=== PATIENT | female | born 1950 | race Caucasian/White ===

== ENCOUNTER 2018-11-05 05:44 | Day surgery (SDC) | payer MEDICARE, OTHER ==
[~2018-11-05] VITALS: Ht 154.9 cm; Wt 75.2 kg
[~2018-11-05 05:44] MED LIST: ATOR20TA38 PO; GABA300S PO; NAPR-683 PO; NAPR-688 PO; OMEP40CA6 PO; TRAM200T17 PO; [UNRECOGNIZED DRUG - CODE] IV
[2018-11-05 06:49] VITALS: Ht 154.9 cm; Wt 75.2 kg
[2018-11-05 06:57] VITALS: BP 131/63; PULSE 69; RESP 12
--- NOTE | 2018-11-05 07:54 | PREAC ---
Date/Time of Note Date/Time of Note DATE: 11/05/18 TIME: 07:53 Anesthesia Eval and Record Evaluation Time Pre-Procedure Interview DATE: 11/05/18 TIME: 07:53 Age 68 Sex female NPO: 8 hrs Preoperative diagnosis ESOPHAGEAL REFLUX Planned procedure EGD Past Medical History Past Medical History: Includes Cardio: Dyslipidemia Musculoskeletal: Rheumatoid arthritis GI: Obesity Surgery & Anesthesia Issues No known issue Meds Anticoagulation: No Beta Leila within 24 hr: No Reason Beta Leila not given: Pt. not on B-Leila Reported Medications Omeprazole* (Omeprazole*) 40 Mg Capsule.dr, 40 MG PO DAILY, #30 CAP 11/05/18 Atorvastatin Calcium* (Atorvastatin Calcium*) 20 Mg Tablet, 20 MG PO QHS, #30 TAB 11/05/18 Rituximab (Rituxan) 10 Mg/Ml Soln, 500 MG IV TWICE PER WEEK 11/05/18 Naproxen* (Naproxen*) 500 Mg Tablet, 500 MG PO BID, TAB 11/05/18 Discontinued Reported Medications Naproxen* (Naproxen*) 250 Mg Tablet, 250 MG PO PRN for PAIN 08/14/13 Tramadol Hcl* (Ultram* ER) 200 Mg Tab.sr.24h, 200 MG PO PRN for PAIN 08/14/13 Gabapentin (GABAPENTIN) 300 Mg/6 Ml Solution, 300 MG PO DAILY 08/14/13 Meds reviewed: Yes Allergies Coded Allergies: methotrexate (Verified Allergy, Severe, THROAT SWELLING, 11/05/18) aspirin (Verified Adverse Reaction, Intermediate, NAUSEA, 11/05/18) Allergies Reviewed: Yes Labs/Studies Labs Reviewed: Reviewed by anesthesiologist test: N/A Pre-procedure Exam Last vitals Vital Signs Date Temp Pulse Resp B/P (MAP) Pulse Ox O2 O2 Flow FiO2 Time Delivery Rate 11/05/18 97.0 69 12 131/63 98 Room Air 06:57 (85) Airway: Adequate mouth opening, Adequate thyromental dist Mallampati: Mallampati II Teeth: Normal Lung: Normal Heart: Normal ASA Physical Status ASA physical status: 2 Emergency: None Planned Anesthetic General/MAC: MAC Planned Pain Management Parenteral pain med Pre-operative Attestations Prior to commencing anesthesia and surgery, the patient was re-evaluated, there was verification of: *The patient's identity *The results of appropriate recent lab work and preoperative vital signs *The above evaluation not changing prior to induction *Anesthetic plan, risk benefits, alternative and complications discussed with patient/family; questions answered; patient/family understands, accepts and wishes to proceed. José Herman M.D. Nov 05, 2018 07:54
[2018-11-05] MEDS ORDERED: PROPOFOL 200 MG INJ ONE (07:55)
[2018-11-05] MEDS ORDERED: FENTAnyl 50 MCG/ML VIAL ONE (07:55)
[2018-11-05] MEDS ORDERED: LIDOCAINE 100 MG SYRINGE ONE (07:55)
[2018-11-05] MEDS ORDERED: PROPOFOL 40 ML ONE (07:55)
--- NOTE | 2018-11-05 08:14 | PAC ---
Date/Time of Note Date/Time of Note DATE: 11/05/18 TIME: 08:14 Post-Anesthesia Notes Post-Anesthesia Note Last documented vital signs Vital Signs Date Temp Pulse Resp B/P (MAP) Pulse Ox O2 O2 Flow FiO2 Time Delivery Rate 11/05/18 97.0 69 12 131/63 98 Room Air 06:57 (85) Activity: WNL Respiratory function: WNL Cardiovascular function: WNL Mental status: Baseline Pain reasonably controlled: Yes Hydration appropriate: Yes Nausea/Vomiting absent: Yes José Herman M.D. Nov 05, 2018 08:14
[2018-11-05 08:30] VITALS: BP 138/64; PULSE 70; RESP 16
--- NOTE | 2018-11-05 10:32 | CONS ---
DATE OF ADMISSION: 11/05/2018 DATE OF CONSULTATION: PATIENT NAME: DEMARCUS MANRIQUE TYPE OF CONSULTATION: Preoperative gastroenterology. HISTORY OF PRESENT ILLNESS: Ms. Demarcus Manrique is a 68-year-old female patient who has been referred to me for further evaluation of chronic heartburn not responding to therapy with omeprazole. No past history of peptic ulcer disease. The patient has been taking naproxen for rheumatoid arthritis. No history of gallstones or liver disease. 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 No colon neoplasm was identified. Not a hypertensive or diabetic. No heart disease, lung problem or kidney disease. The patient has hyperlipidemia. She has rheumatoid arthritis. SOCIAL HISTORY: She is a smoker. Denies alcohol abuse. FAMILY HISTORY: No family history of gastrointestinal tract neoplasm. ALLERGIES: NO DRUG ALLERGIES. MEDICATIONS: 1. Omeprazole 40 mg p.o. q.a.m. 2. Atorvastatin 20 mg p.o. q.a.m. 3. Rituxan infusion every 2 weeks for rheumatoid arthritis 4. Naproxen 500 mg p.o. b.i.d. PHYSICAL EXAMINATION: VITAL SIGNS: She is 5 feet 3 inches tall and weighs 155 pounds. BMI 28. Blood pressure 124/72. HEART: Normal heart sounds. LUNGS: Clear. ABDOMEN: Soft, no masses. Normal bowel sounds. NEUROLOGIC: Normal neurological exam. IMPRESSION: 1. Chronic heartburn, not responding to therapy with omeprazole. 2. The patient had colonoscopy 4 years ago and she was noted to have angiodysplastic lesions in the rectum and no colon neoplasm was identified. 3. Hyperlipidemia. 4. Rheumatoid arthritis. 5. The patient has been taking naproxen. 6. The patient is a smoker. 7. Elevated body mass index. PLAN: 1. The patient was advised weight loss. 2. Follow up with the primary MD for the management of elevated BMI. 3. Endoscopic examination for further evaluation. The procedure and possible complications were well explained to the patient. She understands and con sents to the procedure. I thank you once again. With warmest personal regards, Dictated By: CLINTON CASEY/RAAD Conf#: [id number] DID#: [id number]
== END 2018-11-05 13:51 | disposition home or self-care (01) ==
LOC: GIL 05:44
PROVIDERS: ATTEND Internal Medicine Gastroenterology
DX: K44.9 Diaphragmatic hernia without obstruction or gangrene (principal); K21.9 Gastro-esophageal reflux disease without esophagitis; K29.60 Other gastritis without bleeding; E78.5 Hyperlipidemia, unspecified; M06.9 Rheumatoid arthritis, unspecified
CPT/HCPCS: 43239; 88305; J2001; J3010